=== PATIENT | female | born 2005 | race Hispanic/Latino ===

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

== ENCOUNTER 2024-04-15 10:41 | Emergency (ER) | payer SELFPAY ==
[~2024-04-15] VITALS: Ht 172.7 cm; Wt 93.0 kg
[2024-04-15] MEDS: ceTIRIzine HCL 5 MG TABLET PO SCH (11:06)
[2024-04-15] MEDS: acetaMINOPHEN 500 MG TABLET PO ONE (11:07)
[2024-04-15 11:16] LABS: RAPID GROUP A STREP negative (NEGATIVE)
[2024-04-15 11:26] LABS: COVID19 (SARS ANTIGEN RAPID) PRESUMPTIVE NEGATIVE (NEGATIVE); INFLUENZA TYPE A Negative For Type A (NEGATIVE); INFLUENZA TYPE B Negative For Type B (NEGATIVE)
[2024-04-15 11:34] LABS: APPEARANCE,URINE CLEAR (CLEAR); BILIRUBIN,URINE NEGATIVE (NEGATIVE); COLOR,URINE LIGHT-YELLOW (YELLOW); GLUCOSE, URINE (UA) NEGATIVE (NEGATIVE); KETONES,URINE NEGATIVE (NEGATIVE); LEUKOCYTE ESTERASE ,URINE 25 Leu/uL (NEGATIVE); NITRATE,URINE NEGATIVE (NEGATIVE); OCCULT BLOOD,URINE NEGATIVE (NEGATIVE); PH,URINE 6.5 (5.0-8.0); PROTEIN,URINE NEGATIVE (NEGATIVE); UROBILINOGEN,URINE 0.2 mg/dL (0.2-1.0)
[2024-04-15 11:38] VITALS: TEMP 99.3
[2024-04-15 11:51] LABS: ADD UA MICROSCOPIC YES
[2024-04-15 11:59] LABS: BACTERIA,URINE RARE /HPF (None Seen); MUCUS,URINE RARE LPF (None Seen); RBC,URINE 0-1 /HPF (0-1); SQUAMOUS EPITHELIAL CELL,UR FEW /HPF (0-2)
[2024-04-15 12:32] LABS: BASOPHILS # (AUTO) 0.03 K/uL (0.00-0.20); BASOPHILS % (AUTO) 0.4 % (0.0-5.0); EOSINOPHILS # (AUTO) 0.03 K/uL (0.00-0.70); EOSINOPHILS % (AUTO) 0.4 % (0.0-8.0); HEMATOCRIT 35.6 % (36-48); IMMATURE GRANULOCYTE ABSOLUTE 0.04 K/uL (0-1); LYMPHOCYTES # (AUTO) 0.6 K/uL (1.0-4.8); LYMPHOCYTES % (AUTO) 7.8 % (21.0-51.0); MEAN CORPUSCULAR HEMOGLOBIN 27.5 pg (27.0-33.0); MEAN CORPUSCULAR HGB CONC 32.3 g/dL (32.0-36.0); MEAN CORPUSCULAR VOLUME 85.2 fL (80-100); MONOCYTES # (AUTO) 0.6 K/uL (0.1-1.0); NEUTROPHILS # (AUTO) 6.7 K/uL (1.8-7.7); NEUTROPHILS % (AUTO) 83.9 % (40.0-77.0); PLATELET COUNT (AUTO) 227 K/uL (130-400); RED BLOOD CELL COUNT(AUTO) 4.18 MIL/uL (4.00-5.50); RED CELL DISTRIBUTION WIDTH 13.6 % (11.0-15.5)
[2024-04-15 12:42] LABS: CREATININE 0.7 mg/dL (0.5-1.0); POTASSIUM 3.1 mmol/L (3.5-5.1)
--- NOTE | 2024-04-15 12:49 | ERN ---
General Chief Complaint: Flu Symptoms Stated Complaint: FLU LIKE SYMPTOMS Time Seen by MD: 10:42 Time Seen by Midlevel: 10:42 Source: patient History of Present Illness Initial Comments Patient is a 18-year-old female with no significant past medical history presenting to the emergency department with a flu-like symptoms that started this morning. Symptoms consist of fever, chills, and suprapubic abdominal pain. Denies sick contacts. No dysuria/hematuria or any other symptoms reported at this time. Allergies: Coded Allergies: No Known Allergies (Unverified Allergy, Unknown, 01/30/23) Home Meds Active Scripts Nitrofurantoin/Nitrofuran Mac (Macrobid) 100 Mg Cap, 1 CAP PO BID for 5 Days, #10 CAP 0 Refills Prov:NICOLE MCDONALD 04/15/24 Cephalexin Monohydrate (Keflex) 500 Mg Cap, 500 MG PO BID for 7 Days, #14 CAP Prov:MYLA TRAMMELL 12/27/23 Docusate Sodium (Colace) 100 Mg Capsule, 100 MG PO TID for constipation, #30 CAP 0 Refills Prov:ROMY ESCOBAR MD 11/17/23 Cephalexin Monohydrate (Keflex) 500 Mg Cap, 500 MG PO BID for 7 Days, #14 CAP Prov:ROMY ESCOBAR MD 11/17/23 Cephalexin Monohydrate (Keflex) 500 Mg Cap, 500 MG PO BID for 7 Days, #14 CAP Prov:NICOLE MCDONALD 10/10/23 Cephalexin Monohydrate (Keflex) 500 Mg Cap, 500 MG PO BID for 7 Days, #14 CAP Prov:KULWANT MCCOY MACHINE HOOP MAKER HELPER 08/14/23 Ibuprofen (Ibuprofen) 600 Mg Tablet, 600 MG PO Q6H PRN for PAIN, #30 TAB 0 Refills Prov:MANUELA SLOAN MD 07/30/23 Amoxicillin (Amoxicillin) 500 Mg Capsule, 500 MG PO BID for 10 Days, #20 CAP 0 Refills Prov:MANUELA SLOAN MD 07/30/23 Diphenhydramine HCl (Diphenhydramine HCl) 50 Mg Capsule, 50 MG PO Q6HPRN for ITFCHING/RASH, #30 CAP Prov:ALISA AMEZQUITA NP 04/22/23 Ibuprofen (Ibuprofen) 600 Mg Tablet, 600 MG PO Q6H PRN for PAIN, #15 TAB Prov:ROBBIE SOLO MD 01/30/23 Cephalexin (Cephalexin) 500 Mg Tablet, 500 MG PO TID for 5 Days, #15 TAB Prov:ROBBIE SOLO MD 01/30/23 Past Medical History Past Medical History: No Pertinent History Past Surgical History: None Surgical History Other: NOSE Family History Family History: Negative Social History Social History: Negative, Lives with family Female( History) History: Not Applicable LMP: Feb 04, 2024 : 0 ROS Dictation CONSTITUTIONAL: Negative except for HPI HEAD/FACE: Negative except for HPI EENT: Negative except for HPI RESPIRATORY: Negative except for HPI GASTROINTESTINAL/ABDOMINAL: Negative except for HPI GENITOURINARY: Negative except for HPI MUSCULOSKELETAL: Negative except for HPI INTEGUMENTARY: Negative except for HPI NEUROLOGICAL/PSYCH: Negative except for HPI HEMATOLOGIC/LYMPHATIC: Negative except for HPI All Systems Negative, Except as noted above. 13 point review of systems assessed and all negative except for above. Physical Exam Physical Exam Dictation Vital Signs reviewed General Appearance: Alert, oriented x 3, no acute distress, well developed, nourished. Head and Face: non-traumatic. Eyes: PERRL, pink conjunctivas, eyelid no trauma, anterior chamber with arcus senilis. Ears: Pinnas intact and no signs of trauma or erythema ear canals clear and no discharge TM no erythema Nose: No discharge, no bleeding. Oropharynx: Mouth normal, tongue pink, pharynx clear,no erythema, tonsils no exudates, no abscesses noted, mucous memb andre moist Neck: Supple, non-tender, no thyromegaly, no masses, no JVD, no bruits Breast:Deferred Chest:No tenderness, no crepitus, no paradoxical movement, no retractions Lungs:Clear, well-ventilated, symmetric, no rales, no wheezing, no rhonchi, no s tridor, good breath sounds bilaterally Heart: Regular rate, regular rhythm, no murmur, no gallops Vascular: no peripheral edema, Abdomen: Soft, positive bowel sounds, nondistended, no guarding, nontender, no rebound, no masses no hepatomegaly, no splenomegaly, no Gaston's sign, no hernias. Rectal: Deferred Genital: Deferred Neurological: Normal speech, motor function intact, sensory function intact Musculoskeletal: Neck nontender, full range of motion, back nontender, full range of motion, Extremities: nontender, full range of motion Skin: Color pink, dry, no turgor, no rash, no lacerations, no abrasions, no contusions. Lymphatic: Deferred Results Laboratory and Microbiology Lab and Micro Result Laboratory Tests Test 04/15/24 10:55 04/15/24 11:05 04/15/24 11:54 Influenza Type A Antigen Negative For Type A Influenza Type B Antigen Negative For Type B SARS-CoV-2 Antigen (Rapid) PRESUMPTIVE NEGATIVE Group A Streptococcus Rapid negative (NEGATIVE) Urine Color LIGHT-YELLOW (YELLOW) Urine Appearance CLEAR (CLEAR) Urine pH 6.5 (5.0-8.0) Urine Specific [place] 1.026 (1.001-1.031) Urine Protein NEGATIVE mg/dL (NEGATIVE) Urine Glucose (UA) NEGATIVE mg/dL (NEGATIVE) Urine Ketones NEGATIVE mg/dL (NEGATIVE) Urine Occult Blood NEGATIVE (NEGATIVE) Urine Nitrate NEGATIVE (NEGATIVE) Urine Bilirubin NEGATIVE mg/dL (NEGATIVE) Urine Urobilinogen 0.2 mg/dL (0.2-1.0) Urine Leukocyte Esterase 25 Aung/uL (NEGATIVE) H Urine RBC 0-1 /HPF (0-1) Urine WBC 2-5 /HPF (0-1) H Urine Squamous Epithelial Cells FEW /HPF (0-2) Urine Bacteria RARE /HPF (None Seen) Urine HCG, Qualitative NEGATIVE (NEGATIVE) White Blood Count 8.0 K/uL (4.8-10.8) Red Blood Count 4.18 MIL/uL (4.00-5.50) Hemoglobin 11.5 g/dL (12.0-16.0) L Hematocrit 35.6 % (36-48) L Mean Corpuscular Volume 85.2 fL (80-100) Mean Corpuscular Hemoglobin 27.5 pg (27.0-33.0) Mean Corpuscular Hemoglobin Concent 32.3 g/dL (32.0-36.0) Red Cell Distribution Width 13.6 % (11.0-15.5) Platelet Count 227 K/uL (130-400) Mean Platelet Volume 11.4 fL (7.5-10.5) H Immature Granulocyte % (Auto) 0.5 % (0-1) Neutrophils (%) (Auto) 83.9 % (40.0-77.0) H Lymphocytes (%) (Auto) 7.8 % (21.0-51.0) L Monocytes (%) (Auto) 7.0 % (3.0-13.0) Eosinophils (%) (Auto) 0.4 % (0.0-8.0) Basophils (%) (Auto) 0.4 % (0.0-5.0) Neutrophils # (Auto) 6.7 K/uL (1.8-7.7) Lymphocytes # (Auto) 0.6 K/uL (1.0-4.8) L Monocytes # (Auto) 0.6 K/uL (0.1-1.0) Eosinophils # (Auto) 0.03 K/uL (0.00-0.70) Basophils # (Auto) 0.03 K/uL (0.00-0.20) Absolute Immature Granulocyte (auto 0.04 K/uL (0-1) Nucleated Red Blood Cells 0.0 % (0.0-0.19) White Cell Morphology Comment See comments Sodium Level 140 mmol/L (136-145) Potassium Level 3.1 mmol/L (3.5-5.1) L Chloride Level 103 mmol/L (101-111) Carbon Dioxide Level 27 mmol/L (21-32) Blood Urea Nitrogen 11 mg/dL (7-18) Creatinine 0.7 mg/dL (0.5-1.0) Glomerular Filtration Rate Calc 128 mL/min (>90) Random Glucose 95 mg/dL (70-105) Total Calcium 8.9 mg/dL (8.5-10.1) Labs Reviewed?: Yes MDM MDM: Differential diagnosis: Viral syndrome, respiratory infection, urinary tract infection There are no social concerns with this patient. Prescription drug management Prescriptions will include: Macrobid Medical management and examination interpretation discussions were had by me with other qualified healthcare professionals as indicated for the patient's care. ED Course Orders Procedure Category Date Status Time Cetirizine Hcl 5 Mg PHA 04/15/24 Complete Tablet (Zyrtec 5 Mg 11:00 Influenza Type A & B, LAB 04/15/24 Complete Rapid 10:42 Covid19 (Sars Antigen LAB 04/15/24 Complete Rapid) 10:42 Rapid (Group A Strep) LAB 04/15/24 Complete 10:42 Urinalysis Profile LAB 04/15/24 Complete 10:42 Acetaminophen 500mg PHA 04/15/24 Complete Tab (Tylenol 500mg T 11:00 ,Urine Test LAB 04/15/24 Complete 10:47 0.9%Nacl 1000ml (Ns PHA 04/15/24 Complete 1000ml) 12:00 Cbc With Differential LAB 04/15/24 Complete 11:49 Basic Metabolic Panel LAB 04/15/24 Complete 11:49 Current Medications Medications (Trade) Dose Ordered Sig/Magno Route PRN Reason Start Time Stop Time Status Last Admin Dose Admin Acetaminophen (TYLenol 500MG TAB) 1,000 mg ONCE ONCE PO 04/15/24 11:00 04/15/24 11:01 DC 04/15/24 11:07 Cetirizine HCl (ZYRtec 5 MG TABLET) 5 mg ONCE PO 04/15/24 11:00 04/15/24 14:00 DC 04/15/24 11:06 Sodium Chloride 1,000 ml @ 0 mls/hr ONCE ONCE IV 04/15/24 12:00 04/15/24 12:01 DC 04/15/24 13:02 Vital Signs Date Time Temp Pulse Resp B/P (MAP) Pulse Ox O2 Delivery O2 Flow Rate FiO2 04/15/24 13:03 99.1 92 16 128/68 98 Room Air* 0 04/15/24 11:58 99.3 120 16 120/70 98 Room Air* 0 21 04/15/24 11:07 102.7 04/15/24 10:43 102.7 124 20 141/95 98 Room Air 0 DX & DISP Disposition: Discharge Departure Impression: Primary Impression: UTI (urinary tract infection) Additional Impression: Viral syndrome Condition: Stable Scripts Nitrofurantoin/Nitrofuran Mac (Macrobid) 100 Mg Cap 1 CAP PO BID for 5 Days, #10 CAP 0 Refills Prov: NICOLE MCDONALD 04/15/24 Referrals: SELF,REFERRAL (PCP) Time of Disposition: 13:45 I have reviewed, & agreed with my scribe's, documentation. I have reviewed the case, and I agree with, Diagnosis and Plan I performed the substantive portion of the visit. I have reviewed and personal ly made and approve the management plan that is documented in the note by myself or the SHADI. I acknowledge for responsibility for the patient's management plan. NICOLE MCDONALD Apr 15, 2024 12:49
[2024-04-15] MEDS: 0.9%NACL 1000ML 1,000 ML IV ONE (13:02)
[2024-04-15 13:03] VITALS: BP 128/68; PULSE 92; RESP 16; TEMP 99.1; O2SAT 98
[2024-04-15] MEDS ORDERED: MACR100 PO (13:46)
== END 2024-04-15 13:59 | disposition home or self-care (01) ==
LOC: EDH 10:41
DX: N39.0 Urinary tract infection, site not specified (principal); B34.9 Viral infection, unspecified; Z20.822 Contact with and (suspected) exposure to COVID-19
CPT/HCPCS: 99283; 87426; 80048; 85025; 87880; 87804 ×2; 81001; 81025; 36415; J7030

== ENCOUNTER 2024-07-29 20:14 | Emergency (ER) | payer BC, OTHER ==
[~2024-07-29] VITALS: Ht 172.7 cm; Wt 101.6 kg
[~2024-07-29 20:14] MED LIST changes: +MACR100 PO
--- NOTE | 2024-07-29 20:51 | ERN ---
ED Note History of Present Illness Stated Complaint: SORE THROAT,COUGH,MULTIPLE COMPLAINTS Time Seen by MD: 20:16 Time Seen by Midlevel: 20:16 Dictation: Patient is a 19-year-old female with no past medical history who presents to the emergency department with complaints of sore throat, left ear pain, cough onset two days ago. Patient denies any fevers. Allergies: Coded Allergies: No Known Allergies (Unverified Allergy, Unknown, 01/30/23) Home Meds Active Scripts Nitrofurantoin/Nitrofuran Mac (Macrobid) 100 Mg Cap, 1 CAP PO BID for 5 Days, #10 CAP 0 Refills Prov:NICOLE MCDONALD 04/15/24 Cephalexin Monohydrate (Keflex) 500 Mg Cap, 500 MG PO BID for 7 Days, #14 CAP Prov:MYLA TRAMMELL 12/27/23 Docusate Sodium (Colace) 100 Mg Capsule, 100 MG PO TID for constipation, #30 CAP 0 Refills Prov:ROMY ESCOBAR MD 11/17/23 Cephalexin Monohydrate (Keflex) 500 Mg Cap, 500 MG PO BID for 7 Days, #14 CAP Prov:ROMY ESCOBAR MD 11/17/23 Cephalexin Monohydrate (Keflex) 500 Mg Cap, 500 MG PO BID for 7 Days, #14 CAP Prov:NICOLE MCDONALD 10/10/23 Cephalexin Monohydrate (Keflex) 500 Mg Cap, 500 MG PO BID for 7 Days, #14 CAP Prov:KULWANT MCCOY SPLITTING MACHINE OPERATOR 08/14/23 Ibuprofen (Ibuprofen) 600 Mg Tablet, 600 MG PO Q6H PRN for PAIN, #30 TAB 0 Ref ills Prov:MANUELA SLOAN MD 07/30/23 Amoxicillin (Amoxicillin) 500 Mg Capsule, 500 MG PO BID for 10 Days, #20 CAP 0 Refills Prov:MANUELA SLOAN MD 07/30/23 Diphenhydramine HCl (Diphenhydramine HCl) 50 Mg Capsule, 50 MG PO Q6HPRN for ITFCHING/RASH, #30 CAP Prov:ALISA AMEZQUITA NP 04/22/23 Ibuprofen (Ibuprofen) 600 Mg Tablet, 600 MG PO Q6H PRN for PAIN, #15 TAB Prov:ROBBIE SOLO MD 01/30/23 Cephalexin (Cephalexin) 500 Mg Tablet, 500 MG PO TID for 5 Days, #15 TAB Prov:ROBBIE SOLO MD 01/30/23 Past Medical History Past Medical History: No Pertinent History Surgical History: None Surgical History Other: NOSE Family History: Negative Social History: Negative, Lives with family History: Not Applicable : 0 RN Note Reviewed/Agreed w/PFSH: Yes Review of System Dictation Constitutional: Negative for fever,chills, and weight loss Eyes: Negative for injury, pain,redness, and discharge ENT: Negative for injury,pain or swelling positive for sore throat, runny nose Cardiovascular: Negative for chest pain, palpitations, and edema Respiratory: Negative for shortness of breath, , and wheezing, positive for cough Abdomen/GI: Negative for abdominal pain, nausea, vomiting, diarrhea, and constipation Back: Negative for injury and pain : Negative for injury, bleeding and discharge MS/Extremity: Negative for injury and deformity Skin: Negative for rash, and discoloration Neuro: Negative for headache, weakness, numbness, tingling, and seizure Psych: Negative for suicide ideation, homicidal ideation, and hallucinations Initial Vital Sign VS Vital Signs Date Time Temp Pulse Resp B/P (MAP) Pulse Ox O2 Delivery O2 Flow Rate FiO2 07/29/24 21:10 98.6 89 20 136/86 98 Room Air Physical Exam Dictation Vital Signs reviewed General Appearance: Alert, oriented x 3, no acute distress, well developed, nourished. Head and Face: non-traumatic. Eyes: PERRL, pink conjunctivas, eyelid no trauma, anterior chamber with arcus senilis. Ears: Pinnas intact and no signs of trauma or erythema ear canals clear and no discharge TM no erythema Nose: No discharge, no bleeding. Oropharynx: Mouth normal, tongue pink. pharynx clear,no erythema, tonsils no exudates, no abscesses noted, mucous membrane moist Neck: Supple, non-tender, no thyromegaly, no masses, no JVD, no bruits Breast:Deferred Chest:No tenderness, no crepitus, no paradoxical movement, no retractions Lungs:Clear, well-ventilated, symmetric, no rales, no wheezing, no rhonchi, no stridor, good breath sounds bilaterally Heart: Regular rate, regular rhythm, no murmur, no gallops Vascular: no peripheral edema, Abdomen: Soft, positive bowel sounds, nondistended, no guarding, nontender, no rebound, no masses no hepatomegaly, no splenomegaly, no Gaston's sign, no hernias. Rectal: Deferred Genital: Deferred Neurological: Normal speech, motor function intact, sensory function intact Musculoskeletal: Neck nontender, full range of motion, back nontender, full range of motion, Extremities: nontender, full range of motion Skin: Color pink, dry, no turgor, no rash, no lacerations, no abrasions, no contusions. Lymphatic: Deferred Results (Laboratory/Radiology) Laboratory/Radiology Laboratory Tests Test 07/29/24 21:10 Group A Streptococcus Rapid negative (NEGATIVE) Labs Reviewed?: Yes ED Course ED Course Orders Procedure Category Date Status Time Covid19 (Sars Antigen LAB 07/29/24 In Process Rapid) 20:43 Influenza Type A & B, LAB 07/29/24 In Process Rapid 20:43 Rapid (Group A Strep) LAB 07/29/24 In Process 20:43 Acetaminophen 500mg PHA 07/29/24 Complete Tab (Tylenol 500mg T 21:00 Current Medications Medications (Trade) Dose Ordered Sig/Magno Route PRN Reason Start Time Stop Time Status Last Admin Dose Admin Acetaminophen (TYLenol 500MG TAB) 1,000 mg ONCE ONCE PO 07/29/24 21:00 07/29/24 21:01 DC Vital Signs Date Time Temp Pulse Resp B/P (MAP) Pulse Ox O2 Delivery O2 Flow Rate FiO2 07/29/24 21:10 98.6 89 20 136/86 98 Room Air Medical Decision Making MDM Patient is a 19-year-old female with no past medical history who presents to the emergency department with complaints of sore throat, left ear pain, cough onset two days ago. Patient denies any fevers. Differential diagnosis: COVID 19 infection, influenza, upper respiratory infection Need for hospitalization: Patient does not meet criteria for hospitalization. There are no social concerns with this patient. DX & DISP Disposition: Discharge Departure Impression: Primary Impression: URI (upper respiratory infection) Condition: Stable Additional Instructions: Please follow up with the primary doctor in 1-2 days. If symptoms worsen please return to ER. FOLLOW-UP WITH PRIMARY CARE PROVIDER IN 1 TO 2 DAYS. TAKE MEDICATIONS DIRECTED HERE IN THE EMERGENCY ROOM. OKAY TO CONTINUE HOME MEDICATIONS UNLESS OTHERWISE DISCUSSED DURING YOUR VISIT IN THE EMERGENCY ROOM TODAY. RETURN TO YOUR NEAREST EMERGENCY ROOM IF SYMPTOMS WORSEN OR IF THERE IS NO IMPROVEMENT. CALL 911 IF YOU NEED IMMEDIATE ASSISTANCE. TAKE TYLENOL OR MOTRIN [id number] NEEDED AND IF NO CONTRAINDICATIONS ARE PRESENT. INCREASE ORAL HYDRATION. A WOUND CULTURE OR URINE CULTURE WAS ORDERED HERE IN THE EMERGENCY ROOM DEPARTMENT PLEASE FOLLOW-UP WITH PRIMARY CARE PROVIDER AND ADVISE THEM TO GET REPEAT PORTS FROM OUR FACILITY. IF YOU HAD ANY RADHA WRAP/SPLINTS THAT WERE APPLIED HERE, PLEASE DO NOT REMOVE THEM UNTIL YOU SEE YOUR PRIMARY CARE OR SPECIALTY. Referrals: SELF,REFERRAL (PCP) Time of Disposition: 21:59 I have reviewed the case, and I agree with, Diagnosis and Plan JUAN ESCOBAR SPLITTING MACHINE OPERATOR Jul 29, 2024 20:51
[2024-07-29 21:56] LABS: RAPID GROUP A STREP negative (NEGATIVE)
[2024-07-29 22:05] LABS: COVID19 (SARS ANTIGEN RAPID) PRESUMPTIVE NEGATIVE (NEGATIVE)
[2024-07-29 22:06] LABS: INFLUENZA TYPE A Negative For Type A (NEGATIVE); INFLUENZA TYPE B Negative For Type B (NEGATIVE)
[2024-07-29] MEDS: acetaMINOPHEN 500 MG TABLET PO ONE (22:15)
[2024-07-29 23:46] VITALS: BP 130/82; PULSE 82; RESP 16; TEMP 98.3; O2SAT 98
== END 2024-07-29 23:47 | disposition home or self-care (01) ==
LOC: EDH 20:14
DX: J06.9 Acute upper respiratory infection, unspecified (principal); Z20.822 Contact with and (suspected) exposure to COVID-19; Z79.899 Other long term (current) drug therapy
CPT/HCPCS: 87426; 87804; 87880; 99283

== ENCOUNTER → 2024-10-14 | Outpatient (CLI) | payer OTHER ==
[2024-10-14 12:54] LABS: BASOPHILS # (AUTO) 0.04 K/uL (0.00-0.20); BASOPHILS % (AUTO) 0.6 % (0.0-5.0); EOSINOPHILS # (AUTO) 0.21 K/uL (0.00-0.70); EOSINOPHILS % (AUTO) 2.9 % (0.0-8.0); HEMATOCRIT 36.4 % (36-48); IMMATURE GRANULOCYTE ABSOLUTE 0.02 K/uL (0-1); LYMPHOCYTES # (AUTO) 1.9 K/uL (1.0-4.8); LYMPHOCYTES % (AUTO) 25.9 % (21.0-51.0); MEAN CORPUSCULAR HEMOGLOBIN 27.5 pg (27.0-33.0); MEAN CORPUSCULAR HGB CONC 32.4 g/dL (32.0-36.0); MEAN CORPUSCULAR VOLUME 84.8 fL (80-100); MONOCYTES # (AUTO) 0.5 K/uL (0.1-1.0); MONOCYTES % (AUTO) 6.2 % (3.0-13.0); NEUTROPHILS # (AUTO) 4.6 K/uL (1.8-7.7); NEUTROPHILS % (AUTO) 64.1 % (40.0-77.0); PLATELET COUNT (AUTO) 295 K/uL (130-400); RED BLOOD CELL COUNT(AUTO) 4.29 MIL/uL (4.00-5.50); WHITE BLOOD COUNT (AUTO) 7.2 K/uL (4.8-10.8)
[2024-10-14 13:06] LABS: HEMOGLOBIN A1C 5.7 % (4.0-6.0)
[2024-10-14 13:17] LABS: ALBUMIN 4.3 g/dL (3.5-5.0); BILIRUBIN,TOTAL 0.3 mg/dL (0.2-1.0); CREATININE 0.7 mg/dL (0.5-1.0); POTASSIUM 3.8 mmol/L (3.5-5.1); THYROID STIMULATING HORMONE 2.24 uIU/mL (0.36-3.74); TOTAL PROTEIN, SERUM 8.5 g/dL (6.0-8.3)
== END | disposition home or self-care (01) ==
LOC: LAB 12:07
PROVIDERS: ATTEND Nurse Practitioner Adult Health
DX: E11.65 Type 2 diabetes mellitus with hyperglycemia (principal); E78.2 Mixed hyperlipidemia; E03.8 Other specified hypothyroidism; E55.9 Vitamin D deficiency, unspecified; R53.83 Other fatigue; Z00.00 Encounter for general adult medical examination without abnormal findings
CPT/HCPCS: 36415; 80053; 80061; 82306; 83036; 84443; 85025